=== PATIENT | female | born 1995 | race Caucasian/White ===

== ENCOUNTER 2017-03-29 07:59 | Emergency (ER) | payer OTHER ==
[2017-03-29 08:16] VITALS: BP 120/78; PULSE 72; TEMP 98.1; BMI 32.5
--- NOTE | 2017-03-29 09:57 | PDOC ---
History of Present Illness - General Chief Complaint: Chest Pain Stated Complaint: CHEST PAIN Time Seen by Provider: 03/29/17 08:36 History Source: Patient Exam Limitations: No Limitations - History of Present Illness Initial Comments: 03/29/17 08:53 Patient is here with complaints of chest pain intermittent for many months. States has some mild shortness of breath associated with it once the heaviness occurs. Denies any diaphoresis, denies any cough, denies any history of cardiac disease. Has never been evaluated for this complaint, states he'll the palpitations are progressively worsening. No family history of cardiac disease or no one at home ill presently. Patient smokes hookah on occasion, is currently fasting for Ramadan, works at [employer] and hot sweaty environment. Timing/Duration: reports: gone now, intermittent Severity: reports: mild, moderate Associated Symptoms: reports: chest pain/soreness. denies: cough, dizziness, fever/chills, nasal congestion Past History - Travel Traveled outside of the country in the last 30 days: No Close contact w/someone who was outside of country & ill: No - Past Medical History Allergies/Adverse Reactions: Allergies Allergy/AdvReac Type Severity Reaction Status Date / Time No Known Allergies Allergy Verified 03/29/17 08:13 Home Medications: Ambulatory Orders No Home Medications 0 dose .ROUTE UTDICT 10/10/13 Cephalexin [Keflex] 500 mg PO QID #28 capsule 04/21/15 Suicide Attempt (Hx): No Other medical history: none - Immunization History TDAP Vaccination: Yes Immunization Up to Date: Yes - Psycho/Social/Smoking Cessation Hx Anxiety: No Suicidal Ideation: No Smoking Status: No Smoking History: Never smoked Have you smoked in the past 12 months: No Number of Cigarettes Smoked Daily: 0 Information on smoking cessation initiated: Yes Hx Alcohol Use: No Drug/Substance Use Hx: No Substance Use Type: None Respiratory Specific PMHX - Complaint Specific PMHX Bronchitis: No Pneumonia: No Review of Systems - Review of Systems Able to Perform ROS?: Yes Is the patient limited [place]an proficient: Yes Constitutional: Yes: Symptoms Reported, See HPI, Malaise. No: Fever HEENTM: No: Symptoms Reported, Nose Congestion Respiratory: Yes: See HPI. No: Symptoms reported, Cough Cardiac (ROS): Yes: Symptoms Reported, See HPI, Chest Pain, Lightheadedness ABD/GI: Yes: See HPI. No: Symptoms Reported All Other Systems: Reviewed and Negative *Physical Exam - Vital Signs Last Vital Signs Temp Pulse Resp BP Pulse Ox 98.1 F 72 18 120/78 99 03/29/17 08:13 03/29/17 08:13 03/29/17 08:13 03/29/17 08:13 03/29/17 08:13 - Physical Exam General Appearance: Yes: Nourished, Appropriately Dressed. No: Apparent Distress HEENT: positive: EOMI, MARY ELLEN, Normal ENT Inspection, Normal Voice, TMs Normal, Pharynx Normal, Rhinorrhea. negative: Sinus Tenderness Neck: positive: Supple. negative: Tender, Lymphadenopathy (R), Lymphadenopathy (L) Respiratory/Chest: positive: Lungs Clear, Normal Breath Sounds Cardiovascular: positive: Regular Rate Gastrointestinal/Abdominal: positive: Normal Bowel Sounds, Soft. 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 Is currently fasting for Ramadan and admits to be mildly repeat dehydrated. Will refer to PMD for further evaluation and possible testing including Holter monitor to check for any arrhythmias. Chronic problem agreed would be better served evaluation *DC/Admit/Observation/Transfer Diagnosis at time of Disposition: History of palpitations - Discharge Dispostion Disposition: HOME Condition at time of disposition: Stable Admit: No - Referrals Referrals: Luis Desouza MD [Primary Care Provider] - - Patient Instructions Printed Discharge Instructions: DI for Atypical Chest Pain Additional Instructions: Rest, drink lots of fluids: Teas, water, soups Saltwater gargles Steamy showers/seem to face break up mucus Avoid contact with others until fevers and cough resolved Lots of handwashing and good hygiene Continue [id number] medications for symptomatic relief Tylenol or Motrin for fever and pain HYDRATE WELL Followup with private physician in one to 2 days as needed Return to emergency department for worsened symptoms, fevers, dehydration - Post Discharge Activity Work/School Note: Back to Work
--- NOTE | 2017-04-06 10:23 | EKG ---
Test Reason : Blood Pressure : / mmHG Vent. Rate : 063 BPM Atrial Rate : 063 BPM P-R Int : 142 ms QRS Dur : 084 ms QT Int : 434 ms P-R-T Axes : 030 059 060 degrees QTc Int : 444 ms NORMAL SINUS RHYTHM WITH SINUS ARRHYTHMIA NORMAL ECG NO PREVIOUS ECGS AVAILABLE Confirmed by PATIENCE TROY MD ([id number]) on 04/06/2017 10:23:46 AM Referred By: Confirmed By:PATIENCE TROY MD
== END 2017-03-29 10:30 | disposition home or self-care (01) ==
LOC: JERFT 07:59
DX: R00.2 Palpitations (principal)
CPT/HCPCS: 93005; 93010; 99281-25